=== PATIENT | female | born 1960 | race Caucasian/White ===

== ENCOUNTER → 2018-10-30 | Outpatient (CLI) | payer MEDICAID ==
[~2018-10-30] MED LIST: ALBU18HF INH; ASPI-496 PO; ATOR40TA78 PO; CITA20TA6 PO; HYDR-3237 PO; LOSA50TA14 PO; METF10002 PO; OMEG1CAP23 PO; OXYB5TAB7 PO; TRAM50TA2 PO; UBID100C24 PO
== END | disposition home or self-care (01) ==
LOC: RAD 10:50
PROVIDERS: ATTEND Urology
DX: N20.0 Calculus of kidney (principal); Z96.0 Presence of urogenital implants
CPT/HCPCS: 74018

== ENCOUNTER 2020-07-24 11:34 | Day surgery (SDC) | payer MEDICARE, MEDICAID ==
[~2020-07-24] VITALS: Ht 160 cm; Wt 87.5 kg
[~2020-07-24 11:34] MED LIST changes: +OXYB5TAB10 PO; -OXYB5TAB7 PO
[2020-07-24 12:09] VITALS: BP 158/88
[2020-07-24] MEDS ORDERED: OMNIPAQUE 350 MG/ML, 50 ML BOTTLE ONE (12:09)
[2020-07-24] MEDS ORDERED: CHLORHEXIDINE 15 ML UDC ONE (12:14)
[2020-07-24] MEDS ORDERED: LACTATED RINGERS 1,000 ML IV SCH (12:30)
[2020-07-24] MEDS ORDERED: CHLORHEXIDINE 15 ML UDC PO ONE (12:30)
[2020-07-24] MEDS ORDERED: MULT-53 PO (12:33)
[2020-07-24] MEDS ORDERED: POTA10TA17 PO (12:34)
[2020-07-24] MEDS ORDERED: BIOT1CAP3 PO (12:34)
[2020-07-24] MEDS ORDERED: HYDR25TA6 PO (12:40)
[2020-07-24] MEDS ORDERED: PHEN-583 PO (12:40)
[2020-07-24] MEDS ORDERED: TAMS-11 PO (12:40)
[2020-07-24] MEDS ORDERED: ROSU10TA2 PO (12:40)
[2020-07-24] MEDS ORDERED: ALBU6.7H8 INH (12:40)
[2020-07-24] MEDS ORDERED: ESTR42.58 TP (12:43)
[2020-07-24] MEDS ORDERED: FENTANYL PF 250 MCG/5ML ONE (12:53)
[2020-07-24] MEDS ORDERED: MIDAZOLAM 1 MG/ML, 2ML ONE (12:53)
[2020-07-24] MEDS ORDERED: PROPOFOL 10 MG/ML, 20ML ONE (13:03)
[2020-07-24] MEDS ORDERED: ROCURONIUM 10 MG/ML,10ML ONE (13:03)
[2020-07-24] MEDS ORDERED: ONDANSETRON 2MG/ML, 2ML ONE (13:03)
[2020-07-24] MEDS ORDERED: SUCCINYLCHOLINE 20 MG/ML, 10ML ONE (13:03)
[2020-07-24] MEDS ORDERED: CEFAZOLIN 1,000 MG ONE (13:03)
[2020-07-24] MEDS ORDERED: PROMETHAZINE 25 MG/ML, 1ML IV PRN (14:00)
[2020-07-24] MEDS ORDERED: OXYcodone 5 MG/5 ML ORAL.SOL UDC PO PRN (14:00)
[2020-07-24] MEDS ORDERED: DIAZEPAM 5 MG/ML, 2ML IV PRN ×2 (14:00)
[2020-07-24] MEDS ORDERED: ONDANSETRON 2MG/ML, 2ML IVPush PRN (14:00)
[2020-07-24] MEDS ORDERED: METOCLOPRAMIDE 5 MG/ML, 2ML IV PRN (14:00)
[2020-07-24] MEDS ORDERED: FENTANYL PF 100 MCG/2ML IV PRN (14:00)
[2020-07-24] MEDS ORDERED: hydrALAzine 20 MG/ML, 1ML IV PRN (14:00)
[2020-07-24] MEDS ORDERED: MEPERIDINE/PF 25MG/0.5ML IVPush PRN (14:00)
[2020-07-24] MEDS ORDERED: LABETALOL 5MG/ML, 20ML IV PRN (14:00)
[2020-07-24] MEDS ORDERED: ALBUTEROL SULFATE 2.5 MG/3 ML NPPB PRN (14:00)
[2020-07-24] MEDS ORDERED: HYDROmorphone 1 MG/ML, 1ML INJ IV PRN (14:00)
[2020-07-24] MEDS ORDERED: KETOROLAC 30 MG/1 ML IV PRN (14:00)
[2020-07-24] MEDS ORDERED: ACETAMINOPHEN 650 MG/20.3 ML UDC ONE (15:45)
[2020-07-24] MEDS ORDERED: OXYcodone 5 MG/5 ML ORAL.SOL UDC ONE (15:45)
[2020-07-24] MEDS ORDERED: hydrALAzine 20 MG/ML, 1ML ONE (15:45)
[2020-07-24] MEDS ORDERED: OPIUM/BELLADONNA SUPP.RECT 16.2-30 MG ONE (16:17)
[2020-07-24] MEDS ORDERED: ACETAMINOPHEN 325 MG TABLET PO PRN (16:30)
[2020-07-24] MEDS ORDERED: OPIUM/BELLADONNA SUPP.RECT 16.2-30 MG PR PRN (16:30)
== END 2020-07-24 17:25 | disposition home or self-care (01) ==
LOC: OR 11:34
PROVIDERS: ATTEND Urology
DX: N20.0 Calculus of kidney (principal); E11.9 Type 2 diabetes mellitus without complications; I10 Essential (primary) hypertension; F41.9 Anxiety disorder, unspecified; F32.9 Major depressive disorder, single episode, unspecified; F17.210 Nicotine dependence, cigarettes, uncomplicated; Z20.822 Contact with and (suspected) exposure to COVID-19; Z79.899 Other long term (current) drug therapy; Z83.3 Family history of diabetes mellitus; Z82.49 Family history of ischemic heart disease and other diseases of the circulatory system; Z84.1 Family history of disorders of kidney and ureter
CPT/HCPCS: 52356; 74420; 82360; 82962; 87635; 88300; 93005; C1758; C1769; C2617; J0330; J0360; J0690; J2250; J2405; J2704; J3010; J7120; Q9967

== ENCOUNTER 2020-11-30 12:35 | Emergency (ER) | payer MEDICARE, MEDICAID ==
[~2020-11-30] VITALS: Ht 162.6 cm; Wt 70.0 kg
[~2020-11-30 12:35] MED LIST changes: +ALBU6.7H8 INH; +BIOT1CAP3 PO; +ESTR42.58 TP; +HYDR25TA6 PO; +MULT-53 PO; +PHEN-583 PO; +POTA10TA17 PO; +ROSU10TA2 PO; +TAMS-11 PO
--- NOTE | 2020-11-30 13:43 | NUR ---
BIBA for L sided flank pain since 0700 this am, hx of kidney stones. 250 fentanyl [employer], denies N/V. pt a&o, resps even and unlabored, vss, nadn.
[2020-11-30] MEDS ORDERED: MORPHINE SULFATE 4 MG/ML, 1ML ONE (13:52)
[2020-11-30] MEDS ORDERED: ONDANSETRON 2MG/ML, 2ML ONE (13:52)
[2020-11-30 13:56] LABS: BASOPHILS % (AUTO) 1 % (0-1); EOSINOPHILS % (AUTO) 0 % (1-7); LYMPHOCYTES % (AUTO) 15 % (22-44); MEAN CORPUSCULAR HEMOGLOBIN 29.6 pg (27.0-34.8); MEAN PLATELET VOLUME 8.1 fL (7.4-10.4); MONOCYTES % (AUTO) 4 % (2-9); NEUTROPHILS % (AUTO) 80 % (42-75); PLATELET COUNT 270 x10^3/uL (130-400); RED BLOOD COUNT 5.16 x10^6/uL (3.82-5.3); RED CELL DISTRIBUTION WIDTH 14.7 % (9.6-15.2)
[2020-11-30] MEDS ORDERED: MORPHINE SULFATE 4 MG/ML, 1ML IVPush PRN (14:00)
[2020-11-30] MEDS ORDERED: ONDANSETRON 2MG/ML, 2ML IVPush ONE (14:00)
[2020-11-30 14:04] LABS: ALBUMIN 3.4 g/dL (3.4-5.0); ANION GAP 6 mmol/L (5-15); CALCIUM 9.3 mg/dL (8.5-10.1); CHLORIDE 105 mmol/L (98-107); CREATININE 0.95 mg/dL (0.55-1.02)
--- NOTE | 2020-11-30 14:29 | NUR ---
PT TO CT
[2020-11-30 14:35] LABS: MICROSCOPIC INDICATED
--- NOTE | 2020-11-30 14:47 | NUR ---
PT BACK FROM CT, SLEEPING IN BED, RESPS EVEN AND UNLABORED, VSS, NADN.
[2020-11-30 15:06] VITALS: BP 170/101
--- NOTE | 2020-11-30 15:33 | NUR ---
kathy Hobson at bedside to discuss poc
--- NOTE | 2020-11-30 16:28 | NUR ---
pt educated on dc instructions, verbalized understanding, ambulatory to dc desk with steady gait.
== END 2020-11-30 16:35 | disposition home or self-care (01) ==
LOC: ED 13:05
DX: N13.2 Hydronephrosis with renal and ureteral calculous obstruction (principal); R31.9 Hematuria, unspecified; I10 Essential (primary) hypertension; E11.9 Type 2 diabetes mellitus without complications; F17.200 Nicotine dependence, unspecified, uncomplicated
CPT/HCPCS: 36415; 74176; 80048; 81001; 82040; 85025; 87086; 96374; 96375; 99284; J2270; J2405